=== PATIENT | male | born 1985 | race Caucasian/White ===

== ENCOUNTER 2025-08-14 12:52 | Emergency (ER) | payer BC, SELFPAY ==
[2025-08-14 12:53] VITALS: BP 119/72; PULSE 64; RESP 14; TEMP 36.6; O2SAT 99; BMI 26.5
[2025-08-14 12:55] VITALS: BP 119/72; PULSE 64; RESP 14; TEMP 36.6; O2SAT 99
--- NOTE | 2025-08-14 14:12 | EX.ED.DYSGE1 ---
HPI History of Present Illness Chief Complaint: Other, Pain/Inj Detail of Chief Complaint: Left ring finger pain and swelling Informant: patient Narrative Narrative: Patient presents to the emergency department with complaint of pain and swelling to his left ring finger that is been there for about a week. Patient denies any injury. Patient states he was able to squeeze and get some drainage from it few days ago. He denies fevers or chills or sweats. He is never had this issue before. He does cut his cuticles at times. He is right-hand dominant. PFSH [facility], [facility] Home Medications ?Medication ?Instructions ?Recorded ?Last Taken ?Type cephalexin 500 mg capsule 500 mg PO Q6 #40 CAPSULES 08/14/25 Unknown Rx Allergy/AdvReac Type Severity Reaction Status Date / Time No Known Allergies Allergy Verified 08/14/25 12:55 Social History Smoking Status: Current every day smoker ROS ROS ED Review of Systems ROS Unobtainable: other Constitutional Constitutional ED: Reports lethargy; Denies chills, fever(s), sweats or weight loss Eyes Eyes: Denies blurry vision, change in vision or diplopia ENT ENT ED: Denies rhinorrhea or sore throat Cardiovascular Cardiovascular: Denies chest pain, orthopnea or racing heartbeat Respiratory/Chest Respiratory/Chest: Denies cough, dyspnea, dyspnea on exertion, orthopnea or sputum Gastrointestinal Gastrointestinal: Denies abdominal pain, diarrhea, nausea or vomiting Genitourinary Genitourinary ED: Denies dysuria, hematuria or urinary frequency Musculoskeletal Musculoskeletal: Reports other Details: Left ring finger redness and swelling ; Denies arthralgias, back pain, myalgias or neck pain Integumentary Denies abscess, Abrasions or rash Neurologic Neurologic: Denies headache(s) or weakness Psychiatric Psychiatric: Denies anxiety, depression or suicidal thoughts Endocrine Endocrinology: Denies polydipsia, polyphagia or polyuria Hematologic/Lymphatic Hematologic/Lymphatic: Denies easy bleeding, easy bruising or lymphadenopathy Allergic/Immunologic Allergic/Immunologic ED: Denies mouth swelling, tongue swelling or urticaria EXAM Physical Exam Const Vital Signs: 08/14/25 12:53 08/14/25 12:55 Temperature 97.9 F 97.9 F Temperature Source Oral Oral Pulse Rate 64 64 Respiratory Rate 14 14 Blood Pressure 119/72 119/72 Blood Pressure Mean 87 87 Pulse Ox 99 99 Oxygen Delivery Method Room Air Room Air Positive well nourished and well developed General Appearance ED: well developed and NAD HEENT Reports TM's clear and moist mucous membranes normocephalic and atraumatic; Negative for trauma or tenderness Tympanic Membrane ED: Yes TM's clear Eyes PERRL and EOMs intact bilaterally General Eye ED: Negative for pale conjunctiva or scleral icterus Neck no lymphadenopathy, supple and no JVD General: Negative for tenderness Chest Wall inspection of chest normal and palpation of chest normal Chest: Negative for tenderness Resp normal respiratory effort and clear to auscultation bilaterally Effort and Inspection: Negative for respiratory distress or pain with movement Auscultation: Negative for rhonchi, wheezes or diminished lung sounds Cardio regular rate, regular rhythm, S1 normal heart sound, S2 normal heart sound and no murmurs Peripheral Pulses: pulses 2+ throughout GI normal to inspection, nondistended, normoactive bowel sounds, soft to palpation, non-tender, non-distended and no masses Back/Spine no CVA tenderness and no thoracic nor lumbar tenderness Extremity Extremity Narrative: Left ring finger-patient does have redness and swelling along the lateral edge of the nail. There is no evidence of an ingrown nail. He does have what appears to be purulent debris underneath the skin dermis. Area slightly tender to palpation. Some slight erythema noted. Neurovascularly intact. General Extremety ED: Negative for edema General Extremity: Negative for edema Neuro oriented x3, CN's II-XII intact bilaterally, no sensory deficits noted and gait normal Sensorium / Orientation: awake, alert, oriented to person, oriented to place and oriented to time Motor Exam: strength 5/5 throughout and strength abnormal Psych mental status grossly normal Skin no rashes or lesions noted and no wounds MDM MDM MDM Narrative Medical decision making narrative: Patient with redness and swelling along the lateral edge of the left ring finger nail. Exam consistent with paronychia. Recommended incision and drainage. Patient in agreement. I cleaned the skin with alcohol swab and using a 18-gauge needle made a small stab incision into the most fluctuant portion of the suspected paronychia and large amount of purulent debris was expressed. Clean dressing will be applied. Patient was started on Keflex and given first dose in the emergency department. Patient advised to use Epsom salt soaks. Patient will be discharged to home and will be referred to Dr. Ball for follow-up. Will be given a prescription for Keflex Discharge Plan Triage Chief Complaint: Other, Pain/Inj ED Provider: Hammad Shabazz Dx/Rx/DC Orders Clinical Impression: Paronychia Instructions: ED Paronychia Prescriptions: New cephalexin 500 mg capsule 500 mg PO Q6 Qty: 40 0RF Primary Care Provider: Care Physician,No Primary Referrals: Pillo Hanna MD [Med Staff - Active Staff, Plastic Surgery] - 5-7 Days Care Physician,No Primary [Primary Care Provider, Medical] Print Language: Malay Disposition Disposition: Home, Self Care
[2025-08-14 14:24] VITALS: BP 122/73; PULSE 87; RESP 14; TEMP 36.6; O2SAT 100
== END 2025-08-14 14:34 | disposition home or self-care (01) ==
LOC: ED 14:25
PROVIDERS: Emergency Provider Emergency Medicine; Visit Provider Emergency Medicine
DX: L03.012 Cellulitis of left finger (principal); F17.200 Nicotine dependence, unspecified, uncomplicated
CPT/HCPCS: 10060; 99282